=== PATIENT | male | born 1985 | race Caucasian/White ===

== ENCOUNTER 2016-04-08 14:50 | Inpatient (IN) | payer BC, OTHER ==
[2016-04-08] MEDS ORDERED: Iopamidol 755 Mg/ML 100 ML Bottle IV ONE (16:49)
[2016-04-08] MEDS ORDERED: Docusate Sodium 100 MG Cap PO PRN (19:18)
[2016-04-08] MEDS ORDERED: Temazepam 15 MG Cap PO PRN (19:18)
[2016-04-08] MEDS ORDERED: Ondansetron 4 MG Tab.DIS PO PRN (19:18)
[2016-04-08] MEDS: Enoxaparin 40 MG/0.4 ML Syringe SUBCUT SCH (20:33)
[2016-04-08] MEDS: Acetaminophen 325 MG Tab PO PRN (20:33)
[2016-04-08] MEDS: Sodium Chloride 0.9% 1,000 ML IV SCH (20:35)
[2016-04-08] MEDS: Ibuprofen 600 MG Tab PO PRN (21:47)
[2016-04-08] MEDS ORDERED: Vancomycin 1.75 GM in Sodium Chloride 0.9% 500 ML IV SCH (23:00)
[2016-04-08] MEDS ORDERED: Meropenem 1 GM in Sodium Chloride 0.9% 100 ML IV SCH (23:00)
[2016-04-09] MEDS: Sodium Chloride 0.9% 1,000 ML IV SCH ×2 (06:07→19:29)
[2016-04-09] MEDS: Acetaminophen 325 MG Tab PO PRN ×3 (07:55→20:58)
[2016-04-09] MEDS: Enoxaparin 40 MG/0.4 ML Syringe SUBCUT SCH ×2 (07:55→19:29)
[2016-04-09] MEDS: Meropenem 1 GM in Sodium Chloride 0.9% 100 ML IV SCH ×3 (07:56→23:58)
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
[2016-04-09] MEDS: Ibuprofen 600 MG Tab PO PRN ×2 (09:50→19:37)
[2016-04-09] MEDS ORDERED: SODIUM CHLORIDE 3% IV SCH (12:00)
[2016-04-09] MEDS ORDERED: Vancomycin 1.75 GM in Sodium Chloride 0.9% 500 ML IV SCH (12:00)
[2016-04-09] MEDS ORDERED: VANCOMYCIN IV SCH (12:00)
[2016-04-09] MEDS: Levofloxacin/Dextrose 5%-Water 500 MG in Premix Bag 1 BAG IV SCH (12:19)
[2016-04-09] MEDS: Vancomycin 1.75 GM in Sodium Chloride 0.9% 500 ML IV SCH (13:46)
[2016-04-09] MEDS ORDERED: Omeprazole 20 MG Cap.CR ONE (20:47)
[2016-04-09] MEDS: Omeprazole 20 MG Cap.CR PO SCH (21:00)
[2016-04-09] MEDS ORDERED: Esomeprazole 40 MG Cap PO SCH (21:00)
[2016-04-10] MEDS: Vancomycin 1.75 GM in Sodium Chloride 0.9% 500 ML IV SCH ×2 (00:56→13:28)
[2016-04-10] MEDS: Acetaminophen 325 MG Tab PO PRN ×3 (05:56→19:44)
[2016-04-10] MEDS: Sodium Chloride 0.9% 1,000 ML IV SCH (06:02)
[2016-04-10] MEDS: Enoxaparin 40 MG/0.4 ML Syringe SUBCUT SCH ×2 (08:12→19:45)
[2016-04-10] MEDS: Meropenem 1 GM in Sodium Chloride 0.9% 100 ML IV SCH ×2 (08:12→17:43)
[2016-04-10] MEDS ORDERED: guaiFENesin/Dextromethorphan 100-10 MG/5 ML Soln 5 ML Cup PO PRN (08:35)
--- NOTE | 2016-04-10 08:38 | PCM.PN ---
- General Info Date of Service: 04/10/16 Admission Dx/Problem (Free Text): Patient states he feels better. Had little fever last night but all overall improved. He says his left leg has less pain. No chills, chest pain. He says when he his temperature is obese feels little short of breath. He a cough at night. Is asking for a cough medicine. - Patient Data Vitals - most recent: Last Vital Signs Temp 102.1 F H 04/10/16 06:00 Pulse 98 04/10/16 04:25 Resp 20 04/10/16 04:25 BP 148/80 H 04/10/16 04:25 Pulse Ox 97 04/10/16 04:25 Weight - most recent: 436 lb 9.6 oz I&O - last 24 hours: Intake & Output 04/09/16 04/10/16 04/10/16 22:59 06:59 14:59 Intake Total 767 1241 Output Total 400 1900 Balance 367 -659 Lab Results last 24 hrs: Laboratory Results - last 24 hr 04/10/16 04/10/16 Range/Units 06:40 06:40 WBC 3.5 L (4.5-12.0) X10-3/uL RBC 3.41 L (4.30-5.75) x10(6)uL Hgb 9.2 L (11.5-15.5) g/dL Hct 27.5 L (30.0-51.3) % MCV 80.6 (80-96) fL MCH 27.0 L (27.7-33.6) pg MCHC 33.4 (32.2-35.4) g/dL RDW 13.6 (11.5-15.5) % Plt Count 226 (125-369) X10(3)uL MPV 6.4 L (7.4-10.4) fL Neut % (Auto) 76.5 (46-82) % Lymph % (Auto) 11.4 L (13-37) % [place] % (Auto) 10.6 (4-12) % Eos % (Auto) 1 (1.0-5.0) % Baso % (Auto) 0 (0-2) % Neut # 2.7 (1.6-8.3) # Lymph # 0.4 L (0.6-5.0) # [place] # 0.4 (0.0-1.3) # Eos # 0.0 (0.0-0.8) # Baso # 0.0 (0.0-0.2) # Sodium 130 L (135-145) mmol/L Potassium 3.7 (3.5-5.3) mmol/L Chloride 99 L (100-110) mmol/L Carbon Dioxide 22 L (23-29) mmol/L BUN 8 (5-20) mg/dL Creatinine 0.6 (0.6-1.3) mg/dL Est Cr Clr Drug Dosing 222.75 mL/min Estimated GFR (MDRD) > 60 (>60) BUN/Creatinine Ratio 13.3 (9-20) Glucose 105 (80-116) mg/dL Calcium 7.7 L (8.6-10.2) mg/dL Total Bilirubin 1.2 (0.1-1.3) mg/dL AST 40 H D (5-27) IU/L ALT 31 H D (14-26) IU/L Alkaline Phosphatase 54 L (56-112) IU/L Total Protein 7.3 (6.0-8.0) g/dL Albumin 2.7 L (3.5-5.2) g/dL Globulin 4.6 g/dL Albumin/Globulin Ratio 0.6 Med Orders - Current: Current Medications Acetaminophen (Tylenol) 650 mg PO Q4H PRN PRN Reason: Pain (Mild 1-3)/fever Last Admin: 04/10/16 05:56 Dose: 650 mg Docusate Sodium (Colace) 100 mg PO BID PRN PRN Reason: Constipation Enoxaparin Sodium (Lovenox) 40 mg SUBCUT Q12H [facility] Last Admin: 04/10/16 08:12 Dose: 40 mg Guaifenesin/Dextromethorphan (Q-Tussin Dm) 5 ml PO Q4H PRN PRN Reason: Cough Meropenem 1 gm/ Sodium (Chloride) 100 mls @ 200 mls/hr IV Q8H [facility] Last Admin: 04/10/16 08:12 Dose: 200 mls/hr Vancomycin HCl 1.75 gm/ Sodium (Chloride) 500 mls @ 250 mls/hr IV Q12H [facility] Last Admin: 04/10/16 00:56 Dose: 250 mls/hr Levofloxacin/Dextrose 500 mg/ (Premix) 100 mls @ 100 mls/hr IV Q24H [facility] Last Admin: 04/09/16 12:19 Dose: 100 mls/hr Ibuprofen (Motrin) 600 mg PO Q6H PRN PRN Reason: Pain (mild 1-3) Last Admin: 04/09/16 19:37 Dose: 600 mg Vancomycin Pharm To (Dose) 0 each .XX DAILY [facility] Omeprazole (Omeprazole) 20 mg PO BEDTIME [facility] Last Admin: 04/09/16 21:00 Dose: 20 mg Ondansetron HCl (Zofran Odt) 4 mg PO Q6H PRN PRN Reason: nausea, able to take PO Last Admin: 04/09/16 06:11 Dose: 4 mg Temazepam (Restoril) 15 mg PO BEDTIME PRN PRN Reason: Sleep Last Admin: 04/08/16 23:45 Dose: 15 mg Discontinued Medications Esomeprazole Magnesium (Nexium) 40 mg PO BEDTIME [facility] Sodium Chloride (Normal Saline) 1,000 mls @ 125 mls/hr IV ASDIRECTED [facility] Last Admin: 04/10/16 06:02 Dose: 125 mls/hr Meropenem 1 gm/ Sodium (Chloride) 100 mls @ 200 mls/hr IV Q8H [facility] Last Admin: 04/08/16 23:35 Dose: 200 mls/hr Vancomycin HCl 1.75 gm/ Sodium (Chloride) 500 mls @ 250 mls/hr IV Q12H [facility] Last Admin: 04/09/16 00:24 Dose: 250 mls/hr Vancomycin HCl 1.75 gm/ Sodium (Chloride) 500 mls @ 250 mls/hr IV Q12H [facility] Vancomycin HCl 1.75 gm/ Sodium (Chloride) 500 mls @ 125 mls/hr IV Q12H [facility] Iopamidol (Isovue-370 (76%)) 100 ml IV . DIRECTED ONE Stop: 04/08/16 16:50 Last Admin: 04/08/16 16:52 Dose: 100 ml Omeprazole (Omeprazole) Confirm Administered Dose 20 mg .ROUTE .STK-MED ONE Stop: 04/09/16 20:48 Last Admin: 04/09/16 20:53 Dose: Not Given - Exam General: alert, oriented, cooperative Neck: supple Lungs: Clear to auscultation, Normal respiratory effort. No: Rales, Rhonchi Cardiovascular: regular rate, regular rhythm. No: no murmurs Skin: other (Erythema of left leg improved. Ulcer of left great toe and right plantar surface of the foot about the same.) - Problem List & Annotations (1) Cellulitis, leg SNOMED Code(s): 068828203 Code(s): L03.119 - CELLULITIS OF UNSPECIFIED PART OF LIMB Status: Acute Current Visit: Yes (2) Skin ulcer of left great toe SNOMED Code(s): 214908289, 557323639 Code(s): L97.521 - NON-PRS CHRONIC ULCER OTH PRT L FOOT LIMITED TO BRKDWN SKIN Status: Acute Current Visit: Yes (3) Ulcer of right foot SNOMED Code(s): 89471376 Code(s): L97.519 - NON-PRS CHRONIC ULCER OTH PRT RIGHT FOOT W UNSP SEVERITY Status: Acute Current Visit: Yes (4) Nephrolithiasis SNOMED Code(s): 22952881 Code(s): N20.0 - CALCULUS OF KIDNEY Status: Acute Current Visit: Yes (5) Obesity SNOMED Code(s): 445037337 Code(s): E66.9 - OBESITY, UNSPECIFIED Status: Acute Current Visit: Yes (6) Anemia SNOMED Code(s): 968016136 Code(s): D64.9 - ANEMIA, UNSPECIFIED Status: Acute Current Visit: Yes (7) Hyponatremia SNOMED Code(s): 71219602 Code(s): E87.1 - HYPO-OSMOLALITY AND HYPONATREMIA Status: Acute Current Visit: Yes (8) Bronchitis SNOMED Code(s): 49042831 Code(s): J40 - BRONCHITIS, NOT SPECIFIED ACUTE OR CHRONIC Status: Acute Current Visit: Yes - Problem List Review Problem List Initiated/Reviewed/Updated: Yes - My Orders Last 24 Hours: My Active Orders 04/09/16 09:00 Communication Order [RC] 00,08,16 04/09/16 09:05 CULTURE ANAEROBIC + SMEAR [RM] Routine CULTURE ANAEROBIC + SMEAR [RM] Routine CULTURE ROUTINE + SMEAR [RM] Routine CULTURE ROUTINE + SMEAR [RM] Routine 04/09/16 12:00 Levofloxacin/Dextrose 5%-Water [Levaquin in D5W 500 MG/100 ML] 500 mg Premix Bag 1 bag IV Q24H 04/09/16 21:00 Omeprazole 20 mg PO BEDTIME 04/10/16 08:32 Up ad Meena [RC] ASDIRECTED Convert IV to Saline Lock [OM.PC] Routine 04/10/16 08:33 Dextromethorphan/guaiFENesin [Q-Tussin DM] 5 ml PO Q4H PRN - Plan Plan:: 1. x-ray of the right foot because of the ulcer to rule out osteomyelitis. 2. Both blood cultures are positive. Continue vancomycin Levaquin. Awaiting for identification of the bacteria. 3. Cough medicine when necessary per patient request. 4. He is hyponatremic and I assume he eats normal this should correct itself. So I stopped his IV fluids and saline locked his IV today. 5. CBC, Chem-12, C-reactive protein in the a.m.
--- NOTE | 2016-04-10 09:13 | CR ---
INDICATION: Left great toe infection. Toe is black. LEFT FOOT: Three views of the left foot were obtained and revealed findings at the plantar fascia, suggesting fasciitis. No finding to strongly suggest osteomyelitis was identified. If osteomyelitis is suspected clinically, 3- phase nuclear bone imaging is recommended for further evaluation. Degenerative changes are noted at the talonavicular and naviculocuneiform joints , as well as at the metatarsal tarsal joints to a minimal degree. Degenerative changes are noted at the ankle mortise. Subtalar joint degenerative changes are mild. IMPRESSION: 1. No definite evidence for osteomyelitis. However, if osteomyelitis is suspected clinically, 3-phase nuclear bone imaging may be helpful. 2. Osteoarthritis. 3. Disuse osteoporosis. MTDD
--- NOTE | 2016-04-10 09:22 | CR ---
INDICATION: Possible pneumonia, dyspnea on exertion. Question PE. CHEST: PA and two lateral views of the chest, 04/08/2016, were compared with , and revealed the heart to remain normal in size and shape. The aorta is slightly tortuous. Mediastinum and bony thorax were otherwise unremarkable. There is suggestion of healing rib fractures on the right laterally. A definite active infiltrate or effusion was not identified. IMPRESSION: No acute process. MTDD
--- NOTE | 2016-04-10 09:26 | US ---
INDICATION: Left leg pain and edema, D-dimer elevated, question DVT. DUPLEX ULTRASOUND, LEFT LOWER EXTREMITY VEINS: Utilizing 2-D real time, duplex Doppler spectral analysis, and color flow imaging, examination of the left lower extremity veins revealed no evidence of deep venous thrombosis or obstruction. Compression views showed no abnormal lack of compression to suggest thrombosis. No evidence of incompetence of the valves was identified. Peroneal vein was not visualized, most likely due to edema. Enlarged lymph nodes are noted in the groin. Prominent velocities noted, compatible with inflammation. IMPRESSION: 1. Duplex ultrasound, left lower extremity veins, shows no evidence of deep venous thrombosis. 2. No evidence of valvular incompetence. 3. Multiple enlarged lymph nodes are noted in the groin, measuring 2.75, 2.95, and 3.05 cm. MTDD
[2016-04-10] MEDS ORDERED: Sodium Chloride 0.65% Nasal Spray 45 ML Bottle NAS PRN (11:58)
[2016-04-10] MEDS: Levofloxacin/Dextrose 5%-Water 500 MG in Premix Bag 1 BAG IV SCH (12:06)
[2016-04-10] MEDS: guaiFENesin/Dextromethorphan 100-10 MG/5 ML Soln 5 ML Cup PO PRN (12:10)
[2016-04-10] MEDS ORDERED: Sodium Chloride 0.9% 250 ML IV SCH (12:15)
--- NOTE | 2016-04-10 13:52 | CR ---
INDICATION: Ulcer right foot, lateral. RIGHT FOOT: Three views of the right foot were obtained, revealing evidence of previous surgery with two screws at the distal metaphysis of the 5th metatarsal. There appears to be destruction of the distal metaphysis and/or post surgical change in that area. No comparison study was available. The possibility of osteomyelitis and possibly septic joint at the 5th metatarsophalangeal joint cannot be excluded with this appearance. There is some periarticular calcification and fairly marked soft tissue swelling overlying the area. If osteomyelitis is suspected clinically, 3-phase nuclear medicine bone imaging may be helpful for further evaluation. Large plantar calcaneal spur is noted. Degenerative changes are noted at the 4th and 5th metatarsal tarsal joints with some degenerative change also noted at the calcaneocuboid and talonavicular joints. Degenerative change at the subtalar joint also is suggested. IMPRESSION: 1. Appearance of destruction or possibly postsurgical change at the distal metaphysis of the 5th metatarsal. The possibility of osteomyelitis in that area is difficult to exclude. Soft tissue swelling is noted overlying the joint - 5th metatarsophalangeal joint. 3-phase nuclear bone imaging may be helpful for confirmation. A comparison with previous examination is also recommended initially. 2. Osteoarthritis. 3. Large plantar calcaneal spur. MTDD
[2016-04-10] MEDS: Vancomycin 2 GM in Sodium Chloride 0.9% 500 ML IV SCH ×2 (14:20→21:45)
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
[2016-04-10] MEDS: Omeprazole 20 MG Cap.CR PO SCH (21:32)
[2016-04-10] MEDS: Sodium Chloride 0.9% 10 ML Syringe FLUSH PRN ×3 (21:33→21:45)
[2016-04-11] MEDS: Meropenem 1 GM in Sodium Chloride 0.9% 100 ML IV SCH ×2 (00:11→08:55)
[2016-04-11] MEDS: Acetaminophen 325 MG Tab PO PRN (03:02)
[2016-04-11] MEDS: guaiFENesin/Dextromethorphan 100-10 MG/5 ML Soln 5 ML Cup PO PRN (04:11)
[2016-04-11] MEDS: Vancomycin 2 GM in Sodium Chloride 0.9% 500 ML IV SCH (05:57)
[2016-04-11] MEDS: Sodium Chloride 0.9% 10 ML Syringe FLUSH PRN (05:57)
[2016-04-11] MEDS: Enoxaparin 40 MG/0.4 ML Syringe SUBCUT SCH ×2 (08:04→19:05)
--- NOTE | 2016-04-11 08:31 | PCM.PN ---
- General Info Date of Service: 04/11/16 Admission Dx/Problem (Free Text): Patient states he feels better. No fevers, chills, nausea. He feels the redness in his left leg is better. - Patient Data Vitals - most recent: Last Vital Signs Temp 98.2 F 04/11/16 07:50 Pulse 85 04/11/16 07:50 Resp 20 04/11/16 07:50 BP 129/79 04/11/16 07:50 Pulse Ox 95 04/11/16 07:50 Weight - most recent: 436 lb 9.6 oz I&O - last 24 hours: Intake & Output 04/10/16 04/11/16 04/11/16 22:59 06:59 14:59 Intake Total 2180 760 Output Total 525 Balance 2180 760 -525 Lab Results last 24 hrs: Laboratory Results - last 24 hr 04/10/16 04/11/16 04/11/16 Range/Units 12:30 06:50 06:50 WBC 3.7 L (4.5-12.0) X10-3/uL RBC 3.50 L (4.30-5.75) x10(6)uL Hgb 9.2 L (11.5-15.5) g/dL Hct 28.4 L (30.0-51.3) % MCV 81.1 (80-96) fL MCH 26.3 L (27.7-33.6) pg MCHC 32.4 (32.2-35.4) g/dL RDW 13.4 (11.5-15.5) % Plt Count 285 (125-369) X10(3)uL MPV 5.9 L (7.4-10.4) fL Add Manual Diff Yes Neutrophils % (Manual) 70 (46-82) % Band Neutrophils % 4 (0-6) % Lymphocytes % (Manual) 16 (13-37) % Monocytes % (Manual) 10 (4-12) % Sodium 131 L (135-145) mmol/L Potassium 3.7 (3.5-5.3) mmol/L Chloride 99 L (100-110) mmol/L Carbon Dioxide 24 (23-29) mmol/L BUN 6 (5-20) mg/dL Creatinine 0.5 L (0.6-1.3) mg/dL Est Cr Clr Drug Dosing 267.30 mL/min Estimated GFR (MDRD) > 60 (>60) BUN/Creatinine Ratio 12.0 (9-20) Glucose 100 (80-116) mg/dL Calcium 8.2 L (8.6-10.2) mg/dL Total Bilirubin 0.8 (0.1-1.3) mg/dL AST 44 H (5-27) IU/L ALT 37 H D (14-26) IU/L Alkaline Phosphatase 62 (56-112) IU/L C-Reactive Protein 17.2 H* (0.0-1.0) mg/dL Total Protein 7.9 (6.0-8.0) g/dL Albumin 2.9 L (3.5-5.2) g/dL Globulin 5.0 g/dL Albumin/Globulin Ratio 0.6 Vancomycin Trough 5.4 L (10-15) ug/mL Med Orders - Current: Current Medications Acetaminophen (Tylenol) 650 mg PO Q4H PRN PRN Reason: Pain (Mild 1-3)/fever Last Admin: 04/11/16 03:02 Dose: 650 mg Docusate Sodium (Colace) 100 mg PO BID PRN PRN Reason: Constipation Enoxaparin Sodium (Lovenox) 40 mg SUBCUT Q12H [facility] Last Admin: 04/11/16 08:04 Dose: 40 mg Guaifenesin/Phenylephrine HCl (Robitussin Dm) 5 ml PO Q4H PRN PRN Reason: Cough Guaifenesin/Phenylephrine HCl (Robitussin Dm) 10 ml PO Q4H PRN PRN Reason: Cough Last Admin: 04/11/16 04:11 Dose: 10 ml Meropenem 1 gm/ Sodium (Chloride) 100 mls @ 200 mls/hr IV Q8H [facility] Last Admin: 04/11/16 00:11 Dose: 200 mls/hr Sodium Chloride (Normal Saline) 250 mls @ 100 mls/hr IV ASDIRECTED [facility] Last Admin: 04/10/16 21:45 Dose: 100 mls/hr Levofloxacin/Dextrose 750 mg/ (Premix) 150 mls @ 100 mls/hr IV Q24H [facility] Ibuprofen (Motrin) 600 mg PO Q6H PRN PRN Reason: Pain (mild 1-3) Last Admin: 04/09/16 19:37 Dose: 600 mg Vancomycin Pharm To (Dose) 0 each .XX DAILY [facility] Omeprazole (Omeprazole) 20 mg PO BEDTIME [facility] Last Admin: 04/10/16 21:32 Dose: 20 mg Ondansetron HCl (Zofran Odt) 4 mg PO Q6H PRN PRN Reason: nausea, able to take PO Last Admin: 04/09/16 06:11 Dose: 4 mg Sodium Chloride ([place] Nasal [place]) 0 ml FABIO Q2H PRN PRN Reason: Nasal Dryness Last Admin: 04/10/16 12:13 Dose: 1 spray Sodium Chloride (Saline Flush) 10 ml FLUSH ASDIRECTED PRN PRN Reason: Keep Vein Open Last Admin: 04/11/16 05:57 Dose: 10 ml Temazepam (Restoril) 15 mg PO BEDTIME PRN PRN Reason: Sleep Last Admin: 04/08/16 23:45 Dose: 15 mg Discontinued Medications Esomeprazole Magnesium (Nexium) 40 mg PO BEDTIME [facility] Sodium Chloride (Normal Saline) 1,000 mls @ 125 mls/hr IV ASDIRECTED [facility] Last Admin: 04/10/16 06:02 Dose: 125 mls/hr Meropenem 1 gm/ Sodium (Chloride) 100 mls @ 200 mls/hr IV Q8H [facility] Last Admin: 04/08/16 23:35 Dose: 200 mls/hr Vancomycin HCl 1.75 gm/ Sodium (Chloride) 500 mls @ 250 mls/hr IV Q12H [facility] Last Admin: 04/09/16 00:24 Dose: 250 mls/hr Vancomycin HCl 1.75 gm/ Sodium (Chloride) 500 mls @ 250 mls/hr IV Q12H [facility] Vancomycin HCl 1.75 gm/ Sodium (Chloride) 500 mls @ 250 mls/hr IV Q12H [facility] Last Admin: 04/10/16 13:28 Dose: Not Given Vancomycin HCl 1.75 gm/ Sodium (Chloride) 500 mls @ 125 mls/hr IV Q12H [facility] Levofloxacin/Dextrose 500 mg/ (Premix) 100 mls @ 100 mls/hr IV Q24H [facility] Last Admin: 04/10/16 12:06 Dose: 100 mls/hr Vancomycin HCl 2 gm/ Sodium (Chloride) 500 mls @ 250 mls/hr IV Q8H [facility] Last Admin: 04/11/16 05:57 Dose: 250 mls/hr Iopamidol (Isovue-370 (76%)) 100 ml IV . DIRECTED ONE Stop: 04/08/16 16:50 Last Admin: 04/08/16 16:52 Dose: 100 ml Omeprazole (Omeprazole) Confirm Administered Dose 20 mg .ROUTE .STK-MED ONE Stop: 04/09/16 20:48 Last Admin: 04/09/16 20:53 Dose: Not Given - Exam General: alert, oriented, cooperative Lungs: Normal respiratory effort Skin: other ( ulcer right foot and left toe no changes. Less erythema left leg. ) - Problem List & Annotations (1) Cellulitis, leg SNOMED Code(s): 472178753 Code(s): L03.119 - CELLULITIS OF UNSPECIFIED PART OF LIMB Status: Acute Current Visit: Yes (2) Skin ulcer of left great toe SNOMED Code(s): 015781524, 898613104 Code(s): L97.521 - NON-PRS CHRONIC ULCER OTH PRT L FOOT LIMITED TO BRKDWN SKIN Status: Acute Current Visit: Yes (3) Ulcer of right foot SNOMED Code(s): 66956363 Code(s): L97.519 - NON-PRS CHRONIC ULCER OTH PRT RIGHT FOOT W UNSP SEVERITY Status: Acute Current Visit: Yes (4) Nephrolithiasis SNOMED Code(s): 25899394 Code(s): N20.0 - CALCULUS OF KIDNEY Status: Acute Current Visit: Yes (5) Obesity SNOMED Code(s): 158387013 Code(s): E66.9 - OBESITY, UNSPECIFIED Status: Acute Current Visit: Yes (6) Anemia SNOMED Code(s): 283132998 Code(s): D64.9 - ANEMIA, UNSPECIFIED Status: Acute Current Visit: Yes (7) Hyponatremia SNOMED Code(s): 71890885 Code(s): E87.1 - HYPO-OSMOLALITY AND HYPONATREMIA Status: Acute Current Visit: Yes (8) Bronchitis SNOMED Code(s): 56490553 Code(s): J40 - BRONCHITIS, NOT SPECIFIED ACUTE OR CHRONIC Status: Acute Current Visit: Yes (9) Staphylococcus aureus bacteremia SNOMED Code(s): 920106998 Code(s): R78.81 - BACTEREMIA Status: Acute Current Visit: Yes - Problem List Review Problem List Initiated/Reviewed/Updated: Yes - My Orders Last 24 Hours: My Active Orders 04/10/16 08:32 Up ad [place] [RC] ASDIRECTED Convert IV to Saline Lock [OM.PC] Routine 04/10/16 08:35 Dextromethorphan/guaiFENesin [Robitussin DM] 5 ml PO Q4H PRN 04/10/16 11:57 Dextromethorphan/guaiFENesin [Robitussin DM] 10 ml PO Q4H PRN 04/10/16 11:58 Sodium Chloride 0.65% [[place] Nasal [place]] 0 ml FABIO Q2H PRN 04/10/16 12:15 Sodium Chloride 0.9% [Normal Saline] 250 ml IV ASDIRECTED 04/10/16 15:19 Dressing Change [Wound Care] [RC] Q7D 04/10/16 19:35 Sodium Chloride 0.9% [Saline Flush] 10 ml FLUSH ASDIRECTED PRN 04/11/16 08:30 Levofloxacin/Dextrose 5%-Water [Levaquin in D5W 750 MG/150 ML] 750 mg Premix Bag 1 bag IV Q24H 04/11/16 13:30 VANCOMYCIN TROUGH [CHEM] Timed - Plan Plan:: 1. x-ray of the right foot the radiologist stated there possibly could be some osteomyelitis. He recommended a bone scan. I'm going to discuss whether MRI is okay because bone scan is hard to get. 2. Cultures grew staph aureus sensitive to Levaquin. I changed the dose to 750 mg a day. 3. DC vancomycin.
[2016-04-11] MEDS: [UNRECOGNIZED DRUG - REMARK] SCH (10:26)
[2016-04-11] MEDS: Levofloxacin/Dextrose 5%-Water 750 MG in Premix Bag 1 BAG IV SCH (10:37)
[2016-04-11] MEDS: Ibuprofen 600 MG Tab PO PRN (19:04)
[2016-04-11] MEDS: Omeprazole 20 MG Cap.CR PO SCH (22:09)
[2016-04-12] MEDS: [UNRECOGNIZED DRUG - REMARK] SCH (00:39)
[2016-04-12] MEDS: Enoxaparin 40 MG/0.4 ML Syringe SUBCUT SCH (07:52)
--- NOTE | 2016-04-12 08:47 | PCM.PN ---
- General Info Date of Service: 04/12/16 Admission Dx/Problem (Free Text): Patient without concerns. He says the redness in his leg is improved. He has no fevers, chills, shortness of breath, nausea, vomiting. He has a good appetite. - Patient Data Vitals - most recent: Last Vital Signs Temp 98.4 F 04/12/16 07:49 Pulse 86 04/12/16 07:49 Resp 20 04/12/16 07:49 BP 135/83 04/12/16 07:49 Pulse Ox 95 04/12/16 07:49 Weight - most recent: 436 lb 9.6 oz I&O - last 24 hours: Intake & Output 04/11/16 04/12/16 04/12/16 22:59 06:59 14:59 Intake Total 0 Output Total 1500 600 Balance -1500 -600 Colin Results last 24 hrs: Microbiology 04/09/16 09:05 Gram Stain - Final Toenail, Left - Left Big Routine Culture - Preliminary 04/09/16 09:05 Gram Stain - Final Foot, Right Routine Culture - Preliminary Med Orders - Current: Current Medications Acetaminophen (Tylenol) 650 mg PO Q4H PRN PRN Reason: Pain (Mild 1-3)/fever Last Admin: 04/11/16 03:02 Dose: 650 mg Docusate Sodium (Colace) 100 mg PO BID PRN PRN Reason: Constipation Enoxaparin Sodium (Lovenox) 40 mg SUBCUT Q12H [facility] Last Admin: 04/12/16 07:52 Dose: 40 mg Guaifenesin/Phenylephrine HCl (Robitussin Dm) 5 ml PO Q4H PRN PRN Reason: Cough Guaifenesin/Phenylephrine HCl (Robitussin Dm) 10 ml PO Q4H PRN PRN Reason: Cough Last Admin: 04/11/16 04:11 Dose: 10 ml Sodium Chloride (Normal Saline) 250 mls @ 100 mls/hr IV ASDIRECTED [facility] Last Admin: 04/10/16 21:45 Dose: 100 mls/hr Levofloxacin/Dextrose 750 mg/ (Premix) 150 mls @ 100 mls/hr IV Q24H [facility] Last Admin: 04/11/16 10:37 Dose: 100 mls/hr Ibuprofen (Motrin) 600 mg PO Q6H PRN PRN Reason: Pain (mild 1-3) Last Admin: 04/11/16 19:04 Dose: 600 mg Omeprazole (Omeprazole) 20 mg PO BEDTIME [facility] Last Admin: 04/11/16 22:09 Dose: 20 mg Ondansetron HCl (Zofran Odt) 4 mg PO Q6H PRN PRN Reason: nausea, able to take PO Last Admin: 04/09/16 06:11 Dose: 4 mg Sodium Chloride ([place] Nasal [place]) 0 ml FABIO Q2H PRN PRN Reason: Nasal Dryness Last Admin: 04/10/16 12:13 Dose: 1 spray Sodium Chloride (Saline Flush) 10 ml FLUSH ASDIRECTED PRN PRN Reason: Keep Vein Open Last Admin: 04/11/16 05:57 Dose: 10 ml Temazepam (Restoril) 15 mg PO BEDTIME PRN PRN Reason: Sleep Last Admin: 04/08/16 23:45 Dose: 15 mg Discontinued Medications Esomeprazole Magnesium (Nexium) 40 mg PO BEDTIME [facility] Sodium Chloride (Normal Saline) 1,000 mls @ 125 mls/hr IV ASDIRECTED [facility] Last Admin: 04/10/16 06:02 Dose: 125 mls/hr Meropenem 1 gm/ Sodium (Chloride) 100 mls @ 200 mls/hr IV Q8H [facility] Last Admin: 04/08/16 23:35 Dose: 200 mls/hr Vancomycin HCl 1.75 gm/ Sodium (Chloride) 500 mls @ 250 mls/hr IV Q12H [facility] Last Admin: 04/09/16 00:24 Dose: 250 mls/hr Vancomycin HCl 1.75 gm/ Sodium (Chloride) 500 mls @ 250 mls/hr IV Q12H [facility] Meropenem 1 gm/ Sodium (Chloride) 100 mls @ 200 mls/hr IV Q8H [facility] Last Admin: 04/11/16 08:55 Dose: 200 mls/hr Vancomycin HCl 1.75 gm/ Sodium (Chloride) 500 mls @ 250 mls/hr IV Q12H [facility] Last Admin: 04/10/16 13:28 Dose: Not Given Vancomycin HCl 1.75 gm/ Sodium (Chloride) 500 mls @ 125 mls/hr IV Q12H [facility] Levofloxacin/Dextrose 500 mg/ (Premix) 100 mls @ 100 mls/hr IV Q24H [facility] Last Admin: 04/10/16 12:06 Dose: 100 mls/hr Vancomycin HCl 2 gm/ Sodium (Chloride) 500 mls @ 250 mls/hr IV Q8H [facility] Last Admin: 04/11/16 05:57 Dose: 250 mls/hr Iopamidol (Isovue-370 (76%)) 100 ml IV . DIRECTED ONE Stop: 04/08/16 16:50 Last Admin: 04/08/16 16:52 Dose: 100 ml Vancomycin Pharm To (Dose) 0 each .XX DAILY [facility] Last Admin: 04/12/16 00:39 Dose: Not Given Omeprazole (Omeprazole) Confirm Administered Dose 20 mg .ROUTE .STK-MED ONE Stop: 04/09/16 20:48 Last Admin: 04/09/16 20:53 Dose: Not Given - Exam General: alert, oriented, cooperative Skin: other (Left great toe has 1 cm open lesion and its healing nicely with good granulation tissue. The ulcer on the plantar service of the right foot has good granulation tissue without drainage. Swelling and erythema on the left leg is improved.) - Problem List & Annotations (1) Cellulitis, leg SNOMED Code(s): 098334320 Code(s): L03.119 - CELLULITIS OF UNSPECIFIED PART OF LIMB Status: Acute Current Visit: Yes (2) Skin ulcer of left great toe SNOMED Code(s): 160155317, 068727375 Code(s): L97.521 - NON-PRS CHRONIC ULCER OTH PRT L FOOT LIMITED TO BRKDWN SKIN Status: Acute Current Visit: Yes (3) Ulcer of right foot SNOMED Code(s): 81713953 Code(s): L97.519 - NON-PRS CHRONIC ULCER OTH PRT RIGHT FOOT W UNSP SEVERITY Status: Acute Current Visit: Yes (4) Nephrolithiasis SNOMED Code(s): 59324704 Code(s): N20.0 - CALCULUS OF KIDNEY Status: Acute Current Visit: Yes (5) Obesity SNOMED Code(s): 842372395 Code(s): E66.9 - OBESITY, UNSPECIFIED Status: Acute Current Visit: Yes (6) Anemia SNOMED Code(s): 956866405 Code(s): D64.9 - ANEMIA, UNSPECIFIED Status: Acute Current Visit: Yes (7) Hyponatremia SNOMED Code(s): 26521199 Code(s): E87.1 - HYPO-OSMOLALITY AND HYPONATREMIA Status: Acute Current Visit: Yes (8) Bronchitis SNOMED Code(s): 09879179 Code(s): J40 - BRONCHITIS, NOT SPECIFIED ACUTE OR CHRONIC Status: Acute Current Visit: Yes (9) Staphylococcus aureus bacteremia SNOMED Code(s): 408290663 Code(s): R78.81 - BACTEREMIA Status: Acute Current Visit: Yes - Problem List Review Problem List Initiated/Reviewed/Updated: Yes - My Orders Last 24 Hours: My Active Orders 04/11/16 08:30 Levofloxacin/Dextrose 5%-Water [Levaquin in D5W 750 MG/150 ML] 750 mg Premix Bag 1 bag IV Q24H 04/12/16 06:00 Lwr Ext Joint w wo Cont Bi [MR] Routine - Plan Plan:: 1. MRI of both feet today to rule out osteomyelitis. 2. If that's negative consider discharge on oral Levaquin. 3. I asked radiology to send a note to the radiologist to try to get the MRI read today. 4. He has almost been afebrile for 24 hours. Sleep definitely improving.
[2016-04-12] MEDS ORDERED: Gadobutrol 10 mMOL/10 ML SDV IV SCH (11:45)
[2016-04-12] MEDS ORDERED: Levofloxacin/Dextrose 5%-Water 750 MG in Premix Bag 1 BAG IV SCH (12:00)
[2016-04-12] MEDS: Levofloxacin/Dextrose 5%-Water 750 MG in Premix Bag 1 BAG IV SCH ×2 (14:27→14:52)
[2016-04-12 17:18] VITALS: BP 126/75
--- NOTE | 2016-04-12 18:43 | PCM.SN ---
- Free Text/Narrative Note: MRI left foot looks okay. Right foot looks possible osteomyelitis. Discharged to home and have him seen by ID within a week. Also set up with podiatry, wound care PT. 10 Levaquin 750 mg a day.
--- NOTE | 2016-04-12 18:51 | PCM.DCSUM1 ---
Discharge Summary - Hospital Course Free Text/Narrative:: Patient was admitted put on vancomycin. He had blood cultures that grew out Staphylococcus aureus [id number]. Also a few Streptococcus dysgalactiae. Patient had the cellulitis the left leg and the ulcer on the left great toe. He also had an ulcer on his right plantar surface of the foot these had for 3 years. He initially was seen in podiatry but stopped. He has trace from the foot. The temperature took 4-5 days before he got better. On day 2 Levaquin was started IV with vancomycin. Strep and staph sensitive to Levaquin. Then I stop the vancomycin. He is CTs of his chest that were negative. They couldn't rule out pulmonary embolism but couldn't see it. Patient had MRIs of both feet. Left foot showed no osteomyelitis. Right foot showed osteomyelitis. Will discharge to home on Levaquin 750 by mouth a day. Patient's been afebrile for 24 hours. Patency ID within a week, podiatry, physical therapy for wound care and his primary in 5 days. Brief History: This is a 30-year-old male patient this had redness on his left leg. He said also some his right foot before and has seen podiatry in the past. 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 His pain got so bad he was seen in ER last night. He has fevers, chills, nausea and vomited couple times yesterday. Feels weak. He'll shortness of breath. He had a CT in the ER last night that showed a kidney stone. He had a elevated d-dimer over 1999. Next data they cannot rule out pulmonary embolism. They do not see one. He has no Raynaud's no chest pain - Discharge Data Discharge Date: 04/12/16 Discharge Disposition: Home, Self-Care 01 Condition: Fair - Discharge Diagnosis/Problem(s) (1) Cellulitis, leg SNOMED Code(s): 351217435 ICD Code: L03.119 - CELLULITIS OF UNSPECIFIED PART OF LIMB Status: Acute Current Visit: Yes (2) Skin ulcer of left great toe SNOMED Code(s): 979649494, 094245953 ICD Code: L97.521 - NON-PRS CHRONIC ULCER OTH PRT L FOOT LIMITED TO BRKDWN SKIN Status: Acute Current Visit: Yes (3) Ulcer of right foot SNOMED Code(s): 27401298 ICD Code: L97.519 - NON-PRS CHRONIC ULCER OTH PRT RIGHT FOOT W UNSP SEVERITY Status: Acute Current Visit: Yes (4) Nephrolithiasis SNOMED Code(s): 30977253 ICD Code: N20.0 - CALCULUS OF KIDNEY Status: Acute Current Visit: Yes (5) Obesity SNOMED Code(s): 646158945 ICD Code: E66.9 - OBESITY, UNSPECIFIED Status: Acute Current Visit: Yes (6) Anemia SNOMED Code(s): 357975927 ICD Code: D64.9 - ANEMIA, UNSPECIFIED Status: Acute Current Visit: Yes (7) Hyponatremia SNOMED Code(s): 12188712 ICD Code: E87.1 - HYPO-OSMOLALITY AND HYPONATREMIA Status: Acute Current Visit: Yes (8) Bronchitis SNOMED Code(s): 07937758 ICD Code: J40 - BRONCHITIS, NOT SPECIFIED ACUTE OR CHRONIC Status: Acute Current Visit: Yes (9) Staphylococcus aureus bacteremia SNOMED Code(s): 355306300 ICD Code: R78.81 - BACTEREMIA Status: Acute Current Visit: Yes (10) Osteomyelitis SNOMED Code(s): 78378316 ICD Code: M86.9 - OSTEOMYELITIS, UNSPECIFIED Status: Acute Current Visit : Yes - Patient Instructions Diet: Regular Diet as Tolerated Activity: As Tolerated Driving: May Drive Today Showering/Bathing: May Shower Notify Provider of: Fever, Swelling and Redness Other/Special Instructions: 1. I will set up an appointment with podiatry and infectious disease. 2. Recheck with his primary in 5 days. 3. Off work until he sees his primary. 4. Set up to see Ed[place] our physical therapist does wound care. I will take care of this also. - Discharge Plan Prescriptions/Med Rec: Levofloxacin [Levaquin] 750 mg PO Q24H #14 tablet Home Medications: Home Meds Levofloxacin [Levaquin] 750 mg PO Q24H #14 tablet 04/12/16 [Rx] Patient Handouts: Deep Vein Thrombosis Forms: Return to Work, Inpatient, ED Department Discharge Referrals: Meeta Bernardo NP [Primary Care Provider] - - Discharge Summary/Plan Comment DC Time >30 min.: No - Patient Data Vitals - Most Recent: Last Vital Signs Temp 98.8 F 04/12/16 16:30 Pulse 88 04/12/16 16:30 Resp 20 04/12/16 16:30 BP 126/75 04/12/16 16:30 Pulse Ox 96 04/12/16 16:30 Weight - Most Recent: 436 lb 9.6 oz I&O - Last 24 hours: Intake & Output 04/12/16 04/12/16 04/12/16 06:59 14:59 22:59 Intake Total 0 420 Output Total 1500 600 Balance -1500 -180 [facility] Results - Last 24 hrs: Microbiology 04/09/16 09:05 Gram Stain - Final Foot, Right Anaerobic Culture - Final 04/09/16 09:05 Gram Stain - Final Foot, Right Routine Culture - Final Med Orders - Current: Current Medications Acetaminophen (Tylenol) 650 mg PO Q4H PRN PRN Reason: Pain (Mild 1-3)/fever Last Admin: 04/11/16 03:02 Dose: 650 mg Docusate Sodium (Colace) 100 mg PO BID PRN PRN Reason: Constipation Enoxaparin Sodium (Lovenox) 40 mg SUBCUT Q12H [facility] Last Admin: 04/12/16 07:52 Dose: 40 mg Gadobutrol (Gadavist) 10 ml IV . DIRECTED [facility] Last Admin: 04/12/16 12:13 Dose: 10 ml Guaifenesin/Phenylephrine HCl (Robitussin Dm) 5 ml PO Q4H PRN PRN Reason: Cough Guaifenesin/Phenylephrine HCl (Robitussin Dm) 10 ml PO Q4H PRN PRN Reason: Cough Last Admin: 04/11/16 04:11 Dose: 10 ml Sodium Chloride (Normal Saline) 250 mls @ 100 mls/hr IV ASDIRECTED [facility] Last Admin: 04/10/16 21:45 Dose: 100 mls/hr Levofloxacin/Dextrose 750 mg/ (Premix) 150 mls @ 100 mls/hr IV Q24H [facility] Last Admin: 04/12/16 12:45 Dose: 100 mls/hr Ibuprofen (Motrin) 600 mg PO Q6H PRN PRN Reason: Pain (mild 1-3) Last Admin: 04/11/16 19:04 Dose: 600 mg Omeprazole (Omeprazole) 20 mg PO BEDTIME [facility] Last Admin: 04/11/16 22:09 Dose: 20 mg Ondansetron HCl (Zofran Odt) 4 mg PO Q6H PRN PRN Reason: nausea, able to take PO Last Admin: 04/09/16 06:11 Dose: 4 mg Sodium Chloride ([place] Nasal [place]) 0 ml FABIO Q2H PRN PRN Reason: Nasal Dryness Last Admin: 04/10/16 12:13 Dose: 1 spray Sodium Chloride (Saline Flush) 10 ml FLUSH ASDIRECTED PRN PRN Reason: Keep Vein Open Last Admin: 04/11/16 05:57 Dose: 10 ml Temazepam (Restoril) 15 mg PO BEDTIME PRN PRN Reason: Sleep Last Admin: 04/08/16 23:45 Dose: 15 mg Discontinued Medications Esomeprazole Magnesium (Nexium) 40 mg PO BEDTIME [facility] Sodium Chloride (Normal Saline) 1,000 mls @ 125 mls/hr IV ASDIRECTED [facility] Last Admin: 04/10/16 06:02 Dose: 125 mls/hr Meropenem 1 gm/ Sodium (Chloride) 100 mls @ 200 mls/hr IV Q8H [facility] Last Admin: 04/08/16 23:35 Dose: 200 mls/hr Vancomycin HCl 1.75 gm/ Sodium (Chloride) 500 mls @ 250 mls/hr IV Q12H [facility] Last Admin: 04/09/16 00:24 Dose: 250 mls/hr Vancomycin HCl 1.75 gm/ Sodium (Chloride) 500 mls @ 250 mls/hr IV Q12H [facility] Meropenem 1 gm/ Sodium (Chloride) 100 mls @ 200 mls/hr IV Q8H [facility] Last Admin: 04/11/16 08:55 Dose: 200 mls/hr Vancomycin HCl 1.75 gm/ Sodium (Chloride) 500 mls @ 250 mls/hr IV Q12H [facility] Last Admin: 04/10/16 13:28 Dose: Not Given Vancomycin HCl 1.75 gm/ Sodium (Chloride) 500 mls @ 125 mls/hr IV Q12H [facility] Levofloxacin/Dextrose 500 mg/ (Premix) 100 mls @ 100 mls/hr IV Q24H [facility] Last Admin: 04/10/16 12:06 Dose: 100 mls/hr Vancomycin HCl 2 gm/ Sodium (Chloride) 500 mls @ 250 mls/hr IV Q8H [facility] Last Admin: 04/11/16 05:57 Dose: 250 mls/hr Levofloxacin/Dextrose 750 mg/ (Premix) 150 mls @ 100 mls/hr IV Q24H [facility] Last Admin: 04/12/16 14:52 Dose: Not Given Iopamidol (Isovue-370 (76%)) 100 ml IV . DIRECTED ONE Stop: 04/08/16 16:50 Last Admin: 04/08/16 16:52 Dose: 100 ml Vancomycin Pharm To (Dose) 0 each .XX DAILY [facility] Last Admin: 04/12/16 00:39 Dose: Not Given Omeprazole (Omeprazole) Confirm Administered Dose 20 mg .ROUTE .STK-MED ONE Stop: 04/09/16 20:48 Last Admin: 04/09/16 20:53 Dose: Not Given *Q Meaningful Use (DIS) - VTE *Q VTE Criteria *Q: - Stroke *Q Stroke Criteria *Q: - AMI *Q AMI Criteria *Q:
--- NOTE | 2016-04-24 04:47 | ER ---
DATE SEEN: 04/08/2016 Blood culture: Staphylococcus aureus. Urine culture: Negative. /[id number] 20 2340 [id number]
== END 2016-04-12 19:24 | disposition home or self-care (01) | DRG 383 ==
LOC: FB.ED 14:50 → FB.MS 18:50
PROVIDERS: ADMIT Emergency Medicine; ATTEND Family Medicine
DX: L03.116 Cellulitis of left lower limb (principal); I73.9 Peripheral vascular disease, unspecified; L97.521 Non-pressure chronic ulcer of other part of left foot limited to breakdown of skin; E87.1 Hypo-osmolality and hyponatremia; E87.8 Other disorders of electrolyte and fluid balance, not elsewhere classified; L97.519 Non-pressure chronic ulcer of other part of right foot with unspecified severity; M86.9 Osteomyelitis, unspecified; R78.81 Bacteremia; B95.61 Methicillin susceptible Staphylococcus aureus infection as the cause of diseases classified elsewhere; D64.9 Anemia, unspecified; N20.0 Calculus of kidney; J40 Bronchitis, not specified as acute or chronic; Z87.891 Personal history of nicotine dependence; Z88.1 Allergy status to other antibiotic agents; E66.01 Morbid (severe) obesity due to excess calories; Z68.42 Body mass index [BMI] 45.0-49.9, adult
CPT/HCPCS: 36415; 71020; 71275; 73630-LT; 73630-RT; 73720-LT; 73720-RT; 80053; 80202; 81001; 85025; 85379; 86140; 87040; 87070; 87075; 87077; 87086; 87186; 87205; 93971-LT; 99284; A9270-GY; A9585; J1650; J1956; J2185; J3370; J7030; J7040; J7050; Q9967